=== PATIENT | female | born 1985 | race Caucasian/White ===

== ENCOUNTER 2017-01-05 11:38 | Emergency (ER) | payer OTHER ==
[2017-01-05 12:11] VITALS: BP 114/61
--- NOTE | 2017-01-05 13:26 | UC ---
Throat Pain/Nasal Oskar HPI - HPI Summary HPI Summary: Sneezing yesterday, mild scratchy/raspy throat today, and notable swelling around eyes and on upper face since this morning. Denies redness, itching, pain , or history of sting/bite on forehead or face. No runny nose, fever, or trouble breathing. Denies hx of seasonal allergies. - History of Current Complaint Chief Complaint: UCRespiratory Stated Complaint: SORE THROAT,SWOLLEN FACE Time Seen by Provider: 01/05/17 13:00 Hx Obtained From: Patient Hx Last Menstrual Period: 12/29/16 ?: No Onset/Duration: Gradual Onset, Lasting Hours Severity: Mild Cough: Other: - clearing throat Associated Signs & Symptoms: Positive: Hoarseness. Negative: Sinus Discomfort, Fever, Vomiting - Allergies/Home Medications Allergies/Adverse Reactions: Allergies Allergy/AdvReac Type Severity Reaction Status Date / Time Penicillins Allergy Unknown Anaphylatic Verified 01/05/17 12:11 Shock PMH/Surg Hx/FS Hx/Imm Hx Previously Healthy: No - hep C GI/ History: Gastroesophageal Reflux - Surgical History Surgical History: None - Family History Known Family History: Positive: Cardiac Disease - Social History Lives: Alone Alcohol Use: None Substance Use Type: None Smoking Status (MU): Heavy Every Day Tobacco Smoker Type: Cigarettes Amount Used/How Often: 1 pk daily Review of Systems Constitutional: Negative Skin: Negative Eyes: Other - swelling of upper face ENT: Sore Throat Respiratory: Negative Cardiovascular: Negative Gastrointestinal: Negative Genitourinary: Negative Motor: Negative Neurovascular: Negative Musculoskeletal: Negative Neurological: Negative Psychological: Negative All Other Systems Reviewed And Are Negative: Yes Physical Exam Triage Information Reviewed: Yes Appearance: Well-Appearing, No Pain Distress, Well-Nourished Vital Signs: Initial Vital Signs Temp 98.2 F 01/05/17 12:05 Pulse 72 01/05/17 12:05 Resp 14 01/05/17 12:05 BP 114/61 01/05/17 12:05 Pulse Ox 100 01/05/17 12:05 Vital Signs Reviewed: Yes Eye Exam: Other - PERRL, periorbital swelling, mild Eyes: Positive: Conjunctiva Clear ENT: Positive: Hearing grossly normal, Pharynx normal, Nasal congestion - minimal. Negative: Pharyngeal erythema, TMs normal, Tonsillar swelling Neck exam: Normal Neck: Positive: Supple, Nontender, No Lymphadenopathy Respiratory Exam: Normal Respiratory: Positive: Chest non-tender, Lungs clear, Normal breath sounds, No respiratory distress, No accessory muscle use Cardiovascular Exam: Normal Cardiovascular: Positive: RRR, No Murmur Musculoskeletal Exam: Normal Neurological Exam: Normal Neurological: Positive: Alert Psychological Exam: Normal Skin Exam: Other - puffy around eyes, no rashes, insect stings, lesions, or redness on face or neck. Throat Pain/Nasal Course/Dx - Differential Dx/Diagnosis Provider Diagnoses: allergic rhinitis. periorbital swelling Discharge - Discharge Plan Condition: Stable Disposition: HOME Prescriptions: Cetirizine* [ZyrTEC 10 MG TAB*] 10 mg PO DAILY #30 tab Patient Education Materials: Allergies (ED) Referrals: Nima Alejandre DO [Primary Care Provider] - Additional Instructions: I believe your symptoms are from a mild respiratory allergy. If you have trouble with swallowing or breathing, please go to the emergency department. In addition to the cetirizine, I recommend you take 25-50mg of diphenhydramine in the evening.
== END 2017-01-05 13:28 | disposition home or self-care (01) ==
LOC: UCCORT 11:38
DX: J30.9 Allergic rhinitis, unspecified (principal); R60.9 Edema, unspecified; F17.210 Nicotine dependence, cigarettes, uncomplicated; K21.9 Gastro-esophageal reflux disease without esophagitis; Z88.0 Allergy status to penicillin
CPT/HCPCS: 99212; G0463

== ENCOUNTER 2017-03-25 09:30 | Emergency (ER) | payer BC, OTHER ==
[2017-03-25 09:46] VITALS: BP 121/67
--- NOTE | 2017-03-25 09:57 | UC ---
Abdominal Pain Female HPI - HPI Summary HPI Summary: 32 year old Right pelvic cramping for one to one and a half hours after moving bowels this morning. Now just feels sore. Patient stated she has had similar previous episodes with ovarian cysts. Patient has a Mirena IUD and does not get periods. Patient called into work this morning. Patient is a still cleaner. PCP Pili. Pain was 6/10 earlier today and now it is a 1/10. no urinary concerns, no dysuria, no fever, no blood in urine. no diarrhea. no nausea or vomiting [ End ] - History of Current Complaint Chief Complaint: UCAbdominalPain Stated Complaint: LOWER ABDOMINAL PAIN Time Seen by Provider: 03/25/17 09:50 Hx Obtained From: Patient Hx Last Menstrual Period: Mirena IUD ?: No Onset/Duration: Sudden Onset Severity Initially: Moderate Severity Currently: Mild Location: Suprapubic Character: Aching Aggravating Factor(s): Nothing Alleviating Factor(s): Nothing Associated Signs and Symptoms: Positive: Negative Allergies/Adverse Reactions: Allergies Allergy/AdvReac Type Severity Reaction Status Date / Time Penicillins Allergy Unknown Anaphylatic Verified 03/25/17 09:40 Shock Home Medications: Home Medications Omeprazole CAP* [Prilosec CAP* 20 MG] 20 mg PO DAILY 03/25/17 [History Confirmed 03/25/17] PMH/Surg Hx/FS Hx/Imm Hx Previously Healthy: Yes GI/ History: Other - previous ovarian cysts that have ruptured Other GI/ History: previous ovarian cysts that have ruptured - Surgical History Surgical History: None - Family History Known Family History: Positive: Cardiac Disease - Social History Occupation: Employed Full-time - [employer] Lives: With Family Alcohol Use: None Substance Use Type: Marijuana Substance Use Comment - Amount & Last Used: Daily; This Morning Smoking Status (MU): Heavy Every Day Tobacco Smoker Type: Cigarettes Amount Used/How Often: 1 PPD Length of Time of Smoking/Using Tobacco: Since Age 12 Household Exposure Type: Cigarettes - Immunization History Most Recent Influenza Vaccination: Not the Season Review of Systems Gastrointestinal: Abdominal Pain All Other Systems Reviewed And Are Negative: Yes Physical Exam Triage Information Reviewed: Yes Appearance: Well-Appearing, No Pain Distress, Well-Nourished Vital Signs: Initial Vital Signs Temp 98 F 03/25/17 09:38 Pulse 98 03/25/17 09:38 Resp 16 03/25/17 09:38 BP 121/67 03/25/17 09:38 Pulse Ox 100 03/25/17 09:38 Vital Signs Reviewed: Yes Eye Exam: Normal ENT Exam: Normal Dental Exam: Normal Neck exam: Normal Neck: Positive: 1 Respiratory Exam: Normal Cardiovascular Exam: Normal Abdominal Exam: Normal Abdomen Description: Positive: Nontender - minimal tenderness in the lower pelvic area., Soft. Negative: CVA Tenderness (R), CVA Tenderness (L), Distended , Guarding, Hernia @, Hepatomegaly, McBurney's Point Tenderness, Peritoneal Signs, Pulsatile Mass, Splenomegaly Bowel Sounds: Positive: Present Musculoskeletal Exam: Normal Neurological Exam: Normal Psychological Exam: Normal Skin Exam: Normal Abd Pain Female Course/Dx - Course Course Of Treatment: pt has had ovarian cysts in the past about 5 years ago and feels like that earlier today . no longer in pain , now with about 1/10 pain or less per patient. she has no insurance coverage at this time and does not want work up to reduce the bill, she declined U/A and sono and aware of risks. she essentially came in for work note. advised to call PCP or LOAN ORIGINATOR and get seen and get sono to confirm small ovarian cysts and rule out fibroids / cancer and she is agreeable . - Differential Dx/Diagnosis Differential Diagnosis: Constipation, Ovarian Cyst Provider Diagnoses: Ovarian cyst Discharge - Discharge Plan Condition: Good Disposition: HOME Patient Education Materials: Ruptured Ovarian Cyst (ED) Forms: *Work Release Referrals: Nima Alejandre DO [Primary Care Provider] - 3 Days
== END 2017-03-25 10:17 | disposition home or self-care (01) ==
LOC: UCCORT 09:30
DX: N83.209 Unspecified ovarian cyst, unspecified side (principal); Z72.0 Tobacco use; Z97.5 Presence of (intrauterine) contraceptive device
CPT/HCPCS: 99211; G0463

== ENCOUNTER 2017-09-12 14:23 | Emergency (ER) | payer BC ==
[2017-09-12 15:31] VITALS: BP 121/86
--- NOTE | 2017-09-12 16:15 | UC ---
Head Injury HPI - HPI Summary HPI Summary: body aches headaches and fatigue, hit head 3 times last week---no loc, or alteration in metal status - History Of Current Complaint Chief Complaint: UCHeadInjury Stated Complaint: HEAD INJURY Time Seen by Provider: 09/12/17 16:05 Hx Obtained From: Patient Hx Last Menstrual Period: MIRENA ?: No Mechanism Of Injury: hit head Onset/Duration: Sudden Onset, Lasting Weeks - 1 Severity Currently: Moderate Severity Initially: Moderate Pain Intensity: 5 Pain Scale Used: 0-10 Numeric Aggravating Factor(s): Nothing Alleviating Factor(s): Nothing Associated Signs And Symptoms: Positive: Nausea - Allergies/Home Medications Allergies/Adverse Reactions: Allergies Allergy/AdvReac Type Severity Reaction Status Date / Time MS Penicillins [Penicillins] Allergy Unknown Anaphylatic Verified 09/12/17 15:23 Shock Penicillins Allergy Anaphylatic Verified 09/12/17 15:23 Shock PMH/Surg Hx/FS Hx/Imm Hx Previously Healthy: No GI/ History: Gastroesophageal Reflux Other History Of: Hepatitis C - treated - Surgical History Surgical History: None - Family History Known Family History: Positive: Cardiac Disease - Social History Occupation: Employed Full-time Lives: With Family Alcohol Use: None Substance Use Type: Marijuana Substance Use Comment - Amount & Last Used: USED APPROX 2-3 MOS AGO. Smoking Status (MU): Heavy Every Day Tobacco Smoker Type: Cigarettes Amount Used/How Often: 1 PPD Length of Time of Smoking/Using Tobacco: Since Age 12 Household Exposure Type: Cigarettes - Immunization History Most Recent Influenza Vaccination: Not the 2016/2017 Season Review of Systems Constitutional: Negative Skin: Negative Eyes: Other - some lights both her eyes ENT: Negative Respiratory: Negative Cardiovascular: Negative Gastrointestinal: Negative Genitourinary: Negative Motor: Negative Neurovascular: Negative Musculoskeletal: Negative Neurological: Headache Psychological: Negative Is Patient Immunocompromised?: No All Other Systems Reviewed And Are Negative: Yes Physical Exam Triage Information Reviewed: Yes Appearance: Well-Appearing, No Pain Distress, Well-Nourished Vital Signs: Initial Vital Signs Temp 98.1 F 09/12/17 15:24 Pulse 72 09/12/17 15:24 Resp 18 09/12/17 15:24 BP 121/86 09/12/17 15:24 Pulse Ox 100 09/12/17 15:24 Vital Signs Reviewed: Yes Eye Exam: Normal Eyes: Positive: Conjunctiva Clear, Other: - perrla, eomi, funascopic exam wnl ENT Exam: Normal ENT: Positive: Normal ENT inspection, Hearing grossly normal, Pharynx normal, TMs normal, Uvula midline. Negative: Nasal congestion, Tonsillar swelling, Tonsillar exudate, Trismus, Muffled voice, Hoarse voice, Dental tenderness, Sinus tenderness Dental Exam: Normal Neck exam: Normal Neck: Positive: Supple, Nontender, No Lymphadenopathy Respiratory Exam: Normal Respiratory: Positive: Chest non-tender, Lungs clear, Normal breath sounds, No respiratory distress, No accessory muscle use Cardiovascular Exam: Normal Cardiovascular: Positive: RRR, No Murmur, Pulses Normal, Brisk Capillary Refill Musculoskeletal Exam: Normal Musculoskeletal: Positive: Strength Intact, ROM Intact, No Edema Neurological Exam: Normal Neurological: Positive: Alert, Muscle Tone Normal, Other: - finger to nose and balence wnl, normal rhomberg Psychological Exam: Normal Skin Exam: Normal Head Injury Course/Dx - Course Course Of Treatment: brain rest, tylenol, ibuprofen follow with pcp prn - Differential Dx/Diagnosis Provider Diagnoses: post concussive syndrome Discharge - Discharge Plan Condition: Stable Disposition: HOME Patient Education Materials: Concussion (ED), Head Injury (ED) Forms: *Work Release Referrals: Nima Alejandre DO [Primary Care Provider] - If Needed
== END 2017-09-12 16:22 | disposition home or self-care (01) ==
LOC: UCCORT 14:23
DX: F07.81 Postconcussional syndrome (principal); G44.309 Post-traumatic headache, unspecified, not intractable; W22.8XXA Striking against or struck by other objects, initial encounter; Y93.9 Activity, unspecified; Y92.9 Unspecified place or not applicable; F17.210 Nicotine dependence, cigarettes, uncomplicated; Z88.0 Allergy status to penicillin
CPT/HCPCS: 99211; G0463

== ENCOUNTER 2018-11-20 08:32 | Emergency (ER) | payer OTHER ==
--- OUTSIDE RECORDS SUMMARY | 2018-11-20 08:47 | XMS REPORT | Continuity of Care Document ---
:1985 External Reference #:[id number] Author Name Nima Alejandre D.O. Address [address] [place] [id number] Care Team Providers Name Role Phone HCP given Primary Care Physician Unavailable Payers Date Identification Numbers Payment Provider Subscriber Effective: 2018 Policy Number: [id number] Medicaid [employer] [place] Expires: 2018 PayID: [id number] [place] [address] Policy Number: [id number] [facility] [employer] PayID: [id number] [place] [id number] Advance Directives Description No Information Available Problems Description No Information Family History Date Family Member(s) Observation Comments Mother Thyroid Disease Onset: (age 50 Years) Paternal Grandfather Heart Disease Social History Type Date Description Comments Sex Unknown Education Highest level completed, 12th grade Tobacco Use Start: Unknown Heavy tobacco smoker (more than 10 cigarettes/day) Smoking Status Reviewed: 10/17/17 Heavy tobacco smoker (more than 10 cigarettes/day) Allergies, Adverse Reactions, Alerts Active Allergies Reaction Severity Comments Date Penicillin 03/17/2015 Medications Active Medications SIG Qnty Indications Ordering Provider Date Voltaren apply 2-3 g to 100gm M77.11 Nima Alejandre, 02/18/2018 1% Gel affected area D.O. twice a day as needed for pain M65.4 Omeprazole 1 by mouth every 90caps Nima Alejandre D.O. 40mg Capsules DR day History Medications Diclofenac Sodium 1-2 tabs for 90tabs M77.11 Damon Douglas, 2018 - pain, 2-3 times M.D. 02/18/[address] a day Diclofenac Sodium 2-3 grams 100gm M77.11 DylaneddaDamon, 10/17/2017 - 3% topical four M.D. 2018 Gel times daily as needed Flonase Allergy 2 sprays twice 47.400ml J30.9 Pili Nima, 06/17/2017 - Relief a day until D.O. 10/16/2017 50mcg/Act better. Suspension Vitamin B6 1 by mouth 180tabs G56.01 Nima Alejandre, 06/16/2015 - 200mg three times a D.O. 06/16/2017 Tablets day for 2 months. Multivitamin Gummies Unknown 05/17/2015 - Adults 06/16/2017 Chewtabs Trazodone HCL 1 by mouth 30tabs G47.00 Nima Alejandre, - 50mg every night at D.O. 06/16/2017 Tablets bedtime Escitalopram Oxalate 1 tablets by 300.02 Unknown - mouth daily 05/02/2015 10mg Tablets Medications Administered in Office Medication SIG Qnty Indications Ordering Provider Date injection, kenalog, 10 mg Nima Alejandre, D.O. 06/16/2015 Injection Immunizations Description No Information Available Vital Signs Date Vital Result Comment 10/17/2017 11:08am BP Systolic 120 mmHg BP Diastolic 86 mmHg Heart Rate 75 /min O2 % BldC Oximetry 98 % Body Temperature 98.2 F Weight 192.00 lb W/Boots 06/17/2017 3:52pm BP Systolic 112 mmHg BP Diastolic 60 mmHg Height 67.5 inches 5'7.50" Weight 192.00 lb BMI (Body Mass Index) 29.6 kg/m2 08/06/2015 10:02am Weight 150.00 lb with boots 06/16/2015 9:00am BP Systolic 114 mmHg BP Diastolic 62 mmHg Heart Rate 67 /min Weight 150.00 lb with sneakers 05/02/2015 10:40am BP Systolic 116 mmHg BP Diastolic 74 mmHg Weight 143.00 lb w/shoes 03/17/2015 3:50pm BP Systolic 110 mmHg BP Diastolic 78 mmHg Height 67.5 inches 5'7.50" with sandals Weight 137.00 lb with sandals BMI (Body Mass Index) 21.1 kg/m2 Results Test Date Facility Test Result H/L Range Note Laboratory test 04/10/2016 [facility] Rapid Strep Negative N Negative 1 finding [phone] Molecular Liver Function 06/10/2015 [facility]. Total Protein 7.4 g/dL 6.4-8.2 Tests LABORATORY [phone] Albumin 4.3 g/dL 3.4-5.0 Globulin 3.1 g/dL 1.9-4.3 Alb/Glob 1.4 ratio Bilirubin,Total 0.5 mg/dL 0.2-1.0 Bilirubin,Direct 0.1 mg/dL 0.0-0.2 Bilirubin,Indirect 0.4 mg/dL 0.0-0.9 Sgot/Ast 8 U/L Low 15-37 2 SGPT/Alt 19 U/L 12-78 Alkaline Phosphatase 56 U/L 45-117 HCV Rna 06/10/2015 [facility]. Hepatitis C See Note . 3 PCR,Quant Reflex LABORATORY Quantitation IU/mL Tracy [phone] HCV log10 See Note [id number] HCV Genotype See Note 5 Test Info See Note 6 CBC 06/10/2015 [facility]. White Blood Count 8.1 K/uL 3.1- 10.7 LABORATORY [phone] Red Blood Count 4.41 M/uL 3.90-5.40 Hemoglobin 14.1 gm/dL 11.6-15.8 Hematocrit 41.8 % 36.0-46.1 Mean Cell Volume 94.8 fl 80.9-99.0 Mean Corpuscular HGB 32.0 pg 25.9-32.7 Mean Corpuscular HGB Conc 33.7 g/dL 30.8-34.3 Platelet Count 341 K/uL 155-360 Red Cell Distri Width %CV 14.4 % 11.7-14.4 Mean Platelet Volume 9.5 fL 8.9-12.4 Laboratory test 06/10/2015 [facility]. Afp,Tetra Profile See Note 7 finding LABORATORY [phone] Afp Tumor Marker,Serum 2.5 ng/mL 0.0-8.3 8 1 Program Professional: [id number] TRAVAIL GLO 2 Values below the stated reference ranges of AST and ALT can be seen in normal populations. Clinical correlation is suggested. 3 HCV Not Detected 4 Unable to calculate result since non-numeric result obtained for component test. 5 Not indicated 6 The quantitative range of the assay is 15 IU/mL to 100 million IU/mL using LYN(R) TaqMan(R) HCV test, v 2.0. The limit of detection (LOD) and lower limit of quantification (LLOQ) for this assay is 15 IU/mL. Results less than the quantitative range of the assay will be reported as "HCV RNA detected, less than 15 IU/mL". Performed at: [address] [id number] [employer]: Haja Storm MD, Phone: [phone] Performed at: [address] [id number] [employer]: Sahra Smith MD, Phone: [phone] 7 ORDERED WRONG 8 Normal values apply only to males and to non females. These results are not interpretable for females. Leno ECLIA methodology. Values obtained with different assay methods or kits cannot be used interchangeably. Results cannot be interpreted as absolute evidence of the presence or absence of malignant disease. Procedures Date Code Description Status 10/17/2017 22482 Electrocardiogram Complete Completed 06/16/2015 Inj Therapeutic, Carpal Tunnel Completed Encounters Type Date Location Provider Dx Diagnosis Office Visit 10/17/2017 Main Office Joseph Nguyen M77.11 Lateral 11:00a epicondylitis, right elbow M65.4 Radial styloid tenosynovitis [de Quervain] R07.89 Other chest pain K21.9 Gastro-esophageal reflux disease without esophagitis J06.9 Acute upper respiratory infection, unspecified F17.210 Nicotine dependence, cigarettes, uncomplicated R19.7 Diarrhea, unspecified Z68.29 Body mass index (BMI) 29.0-29.9, adult Office Visit 06/17/2017 3:30p Main Office Nima Alejandre, J30.9 Allergic rhinitis, D.O. unspecified S60.410A Abrasion of right index finger, initial encounter Office Visit 08/06/2015 10:00a Main Office Nima Alejandre, M25.531 Pain in right D.O. wrist M25.532 Pain in left wrist Office Visit 06/16/2015 8:45a Main Office Nima Alejandre, G56.01 Carpal tunnel D.O. syndrome, right upper limb G56.02 Carpal tunnel syndrome, left upper limb Office Visit 05/02/2015 10:40a Main Office Mami Arango, M79.631 Pain in right RPA-C forearm M79.632 Pain in left forearm Z71.9 Counseling, unspecified Office Visit 03/17/2015 3:20p Main Office Mami Arango, 729.5 Pain In Limb RPA-C 300.02 Anxiety Disorder Generalized 780.52 Insomnia Unspecified Plan of Treatment 10/17/2017 - Joseph NguyenM77.11 Lateral epicondylitis, right elbowNew Medication:Diclofenac Sodium 3 % - 2-3 grams topical four times daily as neededFollow up:wear band just below sddkmK31.4 Radial styloid tenosynovitis [ de Quervain]Follow up:use gel with this as well, zwwwodzovH27.89 Other chest painComments:EKG: unremarkable, NSRFollow up:try ice over the area of the discomfort, can try the thhbaokvruC01.9 Gastro-esophageal reflux disease without esophagitisFollow up:Pt is going to go back to Dr. [place].J06.9 Acute upper respiratory infection, unspecifiedFollow up:use a cool or warm mist vaporizer at night and in the room with during day. Shower daily to breathe in the moist vapor call if any problems you can use salt water nose drops or spray to clear nose for a home mix use: mix 1/4 tsp salt, 1/4 tsp baking sode in 1/4 cup of water to make saline solution and put a drop in the nose let it sit a moment then suck it back out to clear nose can use Flonase: 2 sprays per nostril at night or a decongestant like sudafed or pseudoephedrine to helpreduce the drainage suspect diarrhea might be associated with this hswcgO37.210 Nicotine dependence, cigarettes, uncomplicatedFollow up:any time you want to quit try calling the [place] Quitline - 1 800 [place] Quits and they can get you bwppjbqC67.7 Diarrhea, unspecifiedFollow up:watchful waiting, see if sxs cont or progress.Z68.29 Body mass index (BMI) 29.0-29.9, adult
[2018-11-20 09:10] VITALS: BP 110/73
--- NOTE | 2018-11-20 09:28 | UC ---
Throat Pain/Nasal Oskar HPI - HPI Summary HPI Summary: Patient presents to urgent care for evaluation of her sore throat. Patient states she has some sinus congestion and postnasal drip. Patient states she thinks this is related to allergies and the cause of her sore throat. 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 Patient has not taken any medication to treat her symptoms. Patient without any fevers or chills. No ear pain. Nasal discharge is clear. Patient without any shortness of breath or wheeze. No fevers, chills, rash. Patient states she is not . Medications reviewed this visit. - History of Current Complaint Chief Complaint: UCRespiratory Stated Complaint: SORE THROAT Time Seen by Provider: 11/20/18 09:27 Hx Obtained From: Patient Hx Last Menstrual Period: 11/10/18 ?: No Onset/Duration: Gradual Onset Severity: Moderate Pain Intensity: 3 Pain Scale Used: 0-10 Numeric - Allergies/Home Medications Allergies/Adverse Reactions: Allergies Allergy/AdvReac Type Severity Reaction Status Date / Time Penicillins Allergy Anaphylatic Verified 11/20/18 09:10 Shock Home Medications: Home Medications D-Methorphan/PE/Acetaminophen [[place] Plus Day Cap] 1 tab PO ONCE PRN 04/02 [History Confirmed 11/20/18] PMH/Surg Hx/FS Hx/Imm Hx Previously Healthy: Yes Other History Of: Hepatitis C - treated - Surgical History Surgical History: None - Family History Known Family History: Positive: Cardiac Disease, Non-Contributory - Social History Occupation: Employed Full-time Lives: With Family Alcohol Use: None Substance Use Type: None Substance Use Comment - Amount & Last Used: USED APPROX 2-3 MOS AGO. Smoking Status (MU): Heavy Every Day Tobacco Smoker Type: Cigarettes Amount Used/How Often: 1 1/2 PPD Length of Time of Smoking/Using Tobacco: Since Age 12 Household Exposure Type: Cigarettes - Immunization History Most Recent Influenza Vaccination: Not the 2016/2017 Season Review of Systems All Other Systems Reviewed And Are Negative: Yes Constitutional: Positive: Negative ENT: Positive: Nasal Discharge, Sinus Congestion, Sinus Pain/Tenderness. Negative: Sore Throat, Ear Ache Respiratory: Negative: Negative Physical Exam - Summary Physical Exam Summary: Vital Signs Reviewed: Yes A+Ox3, no distress Eyes: Conjunctiva Clear, VINNIE. EOM intact and full ENT: Hearing grossly normal TM x 2 clear, turbinates inflammed and boggy, clear drainage, mild PND, mmoist, uvula midline, no exudate, no erythema Neck: Positive: Supple Respiratory: Positive: No respiratory distress, No accessory muscle use + CTA throughout no w/r Cardiovascular: RRR nl s1, s2 no m/r CBT <2 sec abd soft + BS nt/nd no guarding, no distension Musculoskeletal Exam: NAPIER x 4 without difficulty Strength Intact, ROM Intact Neurological: Positive: Alert, + sensation throughout Psychological: Positive: Normal Response To Family Skin: Positive: no rash, no ecchymosis Triage Information Reviewed: Yes Vital Signs: Initial Vital Signs Temp 97.9 F 11/20/18 09:04 Pulse 63 11/20/18 09:04 Resp 18 11/20/18 09:04 BP 110/73 11/20/18 09:04 Pulse Ox 100 11/20/18 09:04 Throat Pain/Nasal Course/Dx - Course Course Of Treatment: Patient presents to urgent care for evaluation of her sore throat and sinus congestion. Patient with allergies and thinks is causing her postnasal drip and sore throat but works cleaning medical [employer] patient has strep. On exam vital signs are stable. Patient does have boggy turbinates with clear discharge and clear postnasal drip. Uvula midline without any erythema or exudate. We'll check for strep. Anticipate negative. We'll also prescribe Flonase as well as loratadine. Recommend humidified air. Patient comfortable in agreement with plan. - Differential Dx/Diagnosis Provider Diagnosis: Allergic rhinitis Discharge - Sign-Out/Discharge Documenting (check all that apply): Patient Departure All imaging exams completed and their final reports reviewed: No Studies - Discharge Plan Condition: Stable Disposition: HOME Prescriptions: Fluticasone NASAL SPRAY 50MCG* [Flonase NASAL SPRAY 50MCG*] 1 spray BOTH NARES DAILY #1 btl Loratadine 10 mg PO DAILY #30 capsule Patient Education Materials: Pharyngitis (ED), Allergic Rhinitis (ED) Referrals: MATTHEW Fonseca [Primary Care Provider] - Additional Instructions: - Stay well hydrated. Drink plenty of non-alcoholic, non-caffinated beverages. - Alternate ibuprofen (Advil, Motrin) 600mg and Tylenol every 3 hours for pain or fever. Take with food. Do NOT take for more than 4-5 days. - Take allergy medication as prescribed - use nasal spray as prescribed - get plenty of restful sleep - humidify the air in the room where you sleep - boil water, run a hot steam shower, vaporizer, cups of water by heat register - okay to take over the counter decongestant and cough medication -work to decrease cigarette smoking - contact your doctor or return with questions or concerns - Billing Disposition and Condition Condition: STABLE Disposition: Home
== END 2018-11-20 10:13 | disposition home or self-care (01) ==
LOC: UCCORT 08:32
DX: J30.9 Allergic rhinitis, unspecified (principal); F17.210 Nicotine dependence, cigarettes, uncomplicated; Z88.0 Allergy status to penicillin
CPT/HCPCS: 87651; 99212; G0463